=== PATIENT | male | born 1995 | race Caucasian/White ===

== ENCOUNTER 2020-07-28 19:00 | Emergency (ER) | payer OTHER ==
[~2020-07-28] VITALS: Ht 188 cm; Wt 98.4 kg
[2020-07-28 21:00] LABS: URINE BILIRUBIN NEGATIVE (Negative); URINE BLOOD NEGATIVE (Negative); URINE CLARITY CLEAR; URINE COLOR YELLOW; URINE GLUCOSE-RANDOM NEGATIVE (Negative); URINE KETONES NEGATIVE (Negative); URINE LEUKOCYTES-REFLEX 1+ (Negative); URINE NITRITE-REFLEX NEGATIVE (Negative); URINE PROTEIN TRACE (Negative); URINE SPECIFIC GRAVITY >= 1.030 (1.005-1.030); URINE UROBILINOGEN 0.2 E.U./dl (0.2-1.0)
[2020-07-28 21:03] LABS: ABSOLUTE BASOPHILS 0.1 thou/uL (0.0-0.2); ABSOLUTE EOSINOPHILS 0.1 thou/uL (0.0-0.7); ABSOLUTE LYMPHOCYTES 2.8 thou/uL (0.8-5.3); ABSOLUTE MONOCYTES 0.7 thou/uL (0.0-1.2); ABSOLUTE NEUTROPHILS 4.8 thou/uL (1.6-8.1); BASOPHILS 1.1 %; EOSINOPHILS 1.2 %; HEMATOCRIT 44.4 % (42.0-52.0); HEMOGLOBIN 15.4 gm/dL (14.0-18.0); LYMPHOCYTES 33.3 %; MCH 34.6 pg (26.0-34.0); MCHC 34.7 g/dL (28.0-37.0); MCV 99.6 fL (80.0-100.0); MONOCYTES 7.9 %; MPV 7.3 fl. (7.2-11.1); NUCLEATED RBCS 0 /100WBC; PLATELET COUNT* 275 thou/uL (150-400); POLYS 56.5 %; RBC 4.46 mil/uL (4.50-6.00); RDW-CV 12.8 % (10.5-14.5); WBC 8.5 thou/uL (4.0-11.0)
[2020-07-28 21:10] LABS: MUCUS 0-3 Light strn/LPF (None Seen)
[2020-07-28 21:11] LABS: URINE WBC-REFLEX >25 Many /HPF (0-5)
[2020-07-28 21:12] LABS: BACTERIA-REFLEX 1-9 Few /HPF (None Seen); SQUAMOUS NONE SEEN /LPF (0-3)
[2020-07-28 21:14] LABS: CALCIUM 8.9 mg/dL (8.5-10.1); POTASSIUM 3.8 mmol/L (3.5-5.1)
[2020-07-28 21:18] LABS: ALBUMIN 4.2 g/dL (3.4-5.0); TOTAL BILIRUBIN 0.3 mg/dL (<0.1-1.0); TOTAL PROTEIN 7.4 g/dL (6.4-8.2)
[2020-07-28 21:19] LABS: CASTS None Seen /LPF (None Seen)
[2020-07-28 21:25] LABS: URIC ACID CRYSTALS 4-10 Moderate /LPF (None Seen); URINE RBC None Seen /HPF (0-2)
[2020-07-28] MEDS ORDERED: CIPROFLOXACIN500 M1 PO (21:56)
[2020-07-28] MEDS ORDERED: BENTYL 20 MG TA20 M1 PO (21:56)
[2020-07-28 22:56] VITALS: BP 157/92
== END 2020-07-28 22:57 | disposition home or self-care (01) ==
LOC: M.ERS 19:00
PROVIDERS: Personal Emergency Response Attendant
DX: N39.0 Urinary tract infection, site not specified (principal); Z20.828 Contact with and (suspected) exposure to other viral communicable diseases; K59.00 Constipation, unspecified; I10 Essential (primary) hypertension; R42 Dizziness and giddiness

== ENCOUNTER 2020-08-29 11:55 | Emergency (ER) | payer OTHER ==
[~2020-08-29] VITALS: Ht 185.4 cm; Wt 97.5 kg
[~2020-08-29 11:55] MED LIST: BENTYL 20 MG TA20 M1 PO; CIPROFLOXACIN500 M1 PO
[2020-08-29 12:31] LABS: ABSOLUTE BASOPHILS 0.1 thou/uL (0.0-0.2); ABSOLUTE EOSINOPHILS 0.2 thou/uL (0.0-0.7); ABSOLUTE LYMPHOCYTES 2.2 thou/uL (0.8-5.3); ABSOLUTE MONOCYTES 0.6 thou/uL (0.0-1.2); ABSOLUTE NEUTROPHILS 2.3 thou/uL (1.6-8.1); BASOPHILS 1.2 %; EOSINOPHILS 2.9 %; HEMATOCRIT 42.1 % (42.0-52.0); HEMOGLOBIN 14.6 gm/dL (14.0-18.0); LYMPHOCYTES 41.7 %; MCH 34.3 pg (26.0-34.0); MCHC 34.6 g/dL (28.0-37.0); MCV 99.2 fL (80.0-100.0); MONOCYTES 10.8 %; MPV 7.4 fl. (7.2-11.1); NUCLEATED RBCS 0 /100WBC; PLATELET COUNT* 268 thou/uL (150-400); POLYS 43.4 %; RBC 4.25 mil/uL (4.50-6.00); RDW-CV 12.8 % (10.5-14.5); WBC 5.3 thou/uL (4.0-11.0)
[2020-08-29 12:32] LABS: URINE BILIRUBIN NEGATIVE (Negative); URINE BLOOD NEGATIVE (Negative); URINE CLARITY CLEAR; URINE COLOR YELLOW; URINE GLUCOSE-RANDOM NEGATIVE (Negative); URINE KETONES NEGATIVE (Negative); URINE LEUKOCYTES-REFLEX TRACE (Negative); URINE NITRITE-REFLEX NEGATIVE (Negative); URINE PROTEIN NEGATIVE (Negative); URINE SPECIFIC GRAVITY 1.025 (1.005-1.030); URINE UROBILINOGEN 0.2 E.U./dl (0.2-1.0)
[2020-08-29 12:40] LABS: CALCIUM 8.6 mg/dL (8.5-10.1); CREATININE 0.8 mg/dL (0.6-1.3); POTASSIUM 4.1 mmol/L (3.5-5.1)
[2020-08-29 12:45] LABS: TOTAL BILIRUBIN 0.5 mg/dL (<0.1-1.0); TOTAL PROTEIN 7.2 g/dL (6.4-8.2)
[2020-08-29] MEDS ORDERED: CIPRO500 MG PO (12:49)
[2020-08-29 12:50] LABS: BACTERIA-REFLEX 1-9 Few /HPF (None Seen); CASTS None Seen /LPF (None Seen); CRYSTALS None Seen /LPF (None Seen); MUCUS None Seen strn/LPF (None Seen); SQUAMOUS 4-10 Moderate /LPF (0-3); URINE RBC 0-2 Rare /HPF (0-2); URINE WBC-REFLEX 0-5 Rare /HPF (0-5)
[2020-08-29 13:00] VITALS: BP 131/47
== END 2020-08-29 13:00 | disposition home or self-care (01) ==
LOC: M.ERS 11:55
PROVIDERS: Nurse Practitioner Family
DX: N34.2 Other urethritis (principal); N39.0 Urinary tract infection, site not specified; I10 Essential (primary) hypertension

== ENCOUNTER 2021-01-15 19:14 | Emergency (ER) | payer OTHER ==
[~2021-01-15 19:14] MED LIST changes: +CIPRO500 MG PO
== END 2021-01-15 20:40 | disposition left against medical advice (07) ==
LOC: M.ERS 19:14
DX: Z53.21 Procedure and treatment not carried out due to patient leaving prior to being seen by health care provider (principal)

== ENCOUNTER 2021-03-21 16:46 | Emergency (ER) | payer OTHER ==
[~2021-03-21] VITALS: Ht 185.4 cm; Wt 91.6 kg
[2021-03-21] MEDS ORDERED: FLONASE 0.05%50 MCG NARES (16:55)
[2021-03-21] MEDS ORDERED: TESSALON PERLE100 M1 PO (16:55)
[2021-03-21] MEDS ORDERED: PROMETHAZI6.25 MG/5 PO (17:57)
[2021-03-21 18:10] VITALS: BP 155/79
== END 2021-03-21 18:11 | disposition home or self-care (01) ==
LOC: M.ERS 16:46
DX: J06.9 Acute upper respiratory infection, unspecified (principal); Z20.822 Contact with and (suspected) exposure to COVID-19; I10 Essential (primary) hypertension